=== PATIENT | female | born 1980 | race Caucasian/White ===

== ENCOUNTER → 2022-05-22 | Outpatient (REF) | payer SELFPAY ==
[2022-05-22 12:17] LABS: Estradiol 133.3 pg/mL
[2022-05-24 07:51] LABS: Progesterone Level < 0.21 ng/mL (See Comment)
== END ==
LOC: LABSPEC 11:54
PROVIDERS: PCP Internal Medicine; Visit Provider Nurse Practitioner Family
DX: R53.82 Chronic fatigue, unspecified (principal); N95.8 Other specified menopausal and perimenopausal disorders; F32.A Depression, unspecified
CPT/HCPCS: 82627; 82670; 84144; 84403; 82626

== ENCOUNTER 2024-08-06 01:04 | Emergency (ER) | payer SELFPAY ==
[2024-08-06 01:05] VITALS: BP 140/69; PULSE 76; RESP 16; TEMP 36.1; O2SAT 99; BMI 49.9
--- NOTE | 2024-08-06 01:33 | CT_ITS ---
PROCEDURE: ABDOMEN/PELVIS WITHOUT CONT 08/06/2024 REASON FOR EXAM: FLANK PAIN RIGHT TECHNIQUE: Abdomen and pelvis CT without intravenous contrast. Noncontrast technique limits evaluation of the abdominal and pelvic viscera. Coronal and Sagittal reconstruction series were provided. One or more dose reduction techniques were used (e.g., Automated exposure control, adjustment of the mA and/or kV according to patient size, use of iterative reconstruction technique). PATIENT PREPARATION: Per protocol ORAL CONTRAST TYPE: None. COMPARISON: None available FINDINGS: The lung bases are clear. Enlarged, fatty appearing liver. Single small low-density focus near the dome of the liver axial 30 may represent a hepatic cyst and is too small to further characterize. The gallbladder is not identified. The adrenal glands, kidneys, pancreas and spleen appear within limits on noncontrast imaging. No renal stones, hydronephrosis or perinephric stranding. No evidence of ureteral or bladder stone. Abdominal aorta appears within limits on noncontrast imaging without aneurysm. No adenopathy identified. No bowel dilation or free air. Normal caliber appendix without secondary signs. A few noninflamed colonic diverticula. The ovaries/adnexa, uterus and bladder appear within limits. No free fluid seen. Visualized osseous structures appear within limits. CT/Abdomen/Pelvis without Cont IMPRESSION: No evidence of acute intra-abdominal process on noncontrast imaging as above. Enlarged, fatty appearing liver. Reading Location: [id number]
[2024-08-06 01:39] LABS: Mucous, Urine 0 SEEN /hpf (<or=2+)
[2024-08-06 01:43] LABS: Absolute Lymphocyte Count 3.31 X10^3/uL (0.83-4.51); Absolute Neutrophil Count 3.1 X10^3/uL (2.0-7.7); Basophil# 0.05 X10^3/uL; Basophil% 0.7 % (0-1); Eosinophil# 0.26 X10^3/uL; Eosinophils% 3.6 % (0-5); Hematocrit 37.1 % (37-47); Hemoglobin 12.5 g/dL (12.0-15.0); Lymphocyte # 3.31 X10^3/ul (0.83-4.51); Mean Corp Hgb Conc 33.7 g/dL (32-36); Mean Corpuscular Hgb 30.3 pg (27.0-32.0); Mean Corpuscular Volume 89.8 fL (81-99); Mean Platelet Vol. 9.8 fl (6.2-12.0); Monocyte# 0.44 X10^3/uL; Monocyte% 6.1 % (0-10); NRBC Flagged by Analyzer 0 % (0-5); Neutrophil % 43.2 % (47-70); Platelet Count 311 K/mm3 (150-450); RBC Distribution Width CV 13.2 % (11.6-14.6); RBC Distribution Width SD 43.8 fl (35.1-43.9); Red Blood Count 4.13 M/mm3 (4.2-5.4); White Blood Count 7.2 K/mm3 (4.4-11.0)
--- NOTE | 2024-08-06 01:44 | EDS_ITS ---
HPI History of Present Illness Chief Complaint: Abd Pain Informant: patient Narrative Narrative: Sudden pain in right lower abdomen radiates to her back around midnight. Last 2 days no some discomfort in her lower back. Pain causing nausea. Has been no vomiting. 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 No pain in the legs. No fever chills or sweats. No vomiting. 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 Denies urinary symptoms. Currently on her menstrual period. No history of kidney stones. Denies history of gastric ulcers or kidney injury. Cholecystectomy 5 to 6 years ago. Prior similar symptoms: No PFSH PFSH Medical History ADHD IBS (irritable bowel syndrome) Home Medications ?Medication ?Instructions ?Recorded ?Last Taken ?Type cefdinir 300 mg capsule 300 mg PO Q12H #14 caps 07/24 08/17 Unknown Rx ibuprofen 600 mg tablet 600 mg PO Q6H PRN PRN pain # 20 08/06/24 Unknown Rx TABLETS ondansetron 4 mg disintegrating 4 mg PO Q8H PRN PRN Na usea #10 tabs 08/06/24 Unknown Rx tablet Allergy/AdvReac Type Severity Reaction Status Date / Time sulfamethoxazole (From Allergy Hives Verified 08/06/24 01:05 Bactrim) trimethoprim (From Bactrim) Allergy Hives Verified 08/06/24 01:05 Surgical History History of cholecystectomy Social History Smoking Status: Never smoker ROS ROS ED Constitutional Constitutional ED: Denies chills, fever(s) or sweats ENT ENT ED: Denies sore throat Cardiovascular Cardiovascular: Denies chest pain, leg edema, palpitations or racing heartbeat Respiratory/Chest Respiratory/Chest: Denies cough, dyspnea or dyspnea on exertion Gastrointestinal Gastrointestinal: Reports abdominal pain and nausea; Denies diarrhea or vomiting Genitourinary Genitourinary ED: Denies dysuria, hematuria or urinary frequency Musculoskeletal Musculoskeletal: Reports back pain; Denies extremity pain or neck pain Integumentary Denies rash or wounds Neurologic Neurologic: Denies headache(s), paresthesias or weakness EXAM Physical Exam Const Vital Signs: 08/06/24 01:05 08/06/24 03:14 Temperature 97 F L 97.9 F Temperature Source Temporal Pulse Rate 76 87 Respiratory Rate 16 18 Blood Pressure 140/69 H 139/89 H Blood Pressure Mean 92 105 Pulse Ox 99 99 Positive well nourished and well developed General Appearance ED: well developed and NAD HEENT Reports moist mucous membranes normocephalic and atraumatic Eyes General Eye ED: Yes normal appearance of both eyes Neck full ROM Chest Wall Chest: Negative for tenderness Resp normal respiratory effort and normal air movement Effort and Inspection: symmetric chest movement; Negative for respiratory distress Cardio regular rate, regular rhythm and no murmurs Peripheral Pulses: pulses 2+ throughout GI normal to inspection, nondistended, normoactive bowel sounds and non-tender GI Narrative: Negative Dia's or McBurney's tenderness. Palpation: Negative for guarding or rebound tenderness present Extremity normal to inspection General Extremety ED: Negative for edema or tenderness General Extremity: Negative for edema Neuro oriented x3 and no sensory deficits noted Sensorium / Orientation: awake and alert Skin no rashes or lesions noted and no wounds MDM MDM MDM Narrative Medical decision making narrative: Interventions / MDM: Differential diagnosis: UTI, abdominal pain, back pain Diagnosis considered but do not suspect: Appendicitis, kidney stone however CT negative. My EKG interpretation: N/A Imaging independently reviewed and interpreted by myself: CT abdomen pelvis: No acute process. External documents reviewed: N/A Test considered but not ordered:N/A ED course: Nontoxic vital stable. Sudden pain lower abdomen radiates to her back. Some vague back pain 2 days ago. Renal stone protocol admission. Labs urine hCG CT scan. IV established for fluids Zofran and Toradol ordered for symptom control. Workup urine nitrites leukocytes mild white cells there was blood however she is on her menstrual period. Urine culture sent. Labs white count 7.[address] scan negative for any acute process. With nitrite leukocytes discussed treatment. She started on cefdinir twice a day for the next 7 days. Outpatient follow-up with her doctor. All questions were answered. Re-evaluation: stable Disposition discussed with patient/family/significant other: Patient Case discussed with consulting clinician: N/A This note was generated with [employer] dictation software. It may contain incorrect words, spelling, and punctuation that were not noted in checking the note before signing. Lab Data Attestation: I reviewed the patient's lab results. Labs: Laboratory Results - last 24 hr 08/06/24 08/06/24 01:15 01:26 WBC 7.2 RBC 4.13 L Hgb 12.5 Hct 37.1 MCV 89.8 MCH 30.3 MCHC 33.7 RDW Std Deviation 43.8 RDW Coeff of [place] 13.2 Plt Count 311 MPV 9.8 Immature Gran % (Auto) 0.400 Neut % (Auto) 43.2 L Lymph % (Auto) 46.[address] % (Auto) 6.1 Eos % (Auto) 3.6 Baso % (Auto) 0.7 Absolute Neuts (auto) 3.1 Absolute Lymphs (auto) 3.31 Nucleated RBC % 0 Sodium 136 Potassium 4.0 Chloride 107 Carbon Dioxide 19.0 L Anion Gap 10 BUN 9 Creatinine 0.81 Estim Creat Clear Calc 126.59 Est GFR (MDRD) Non-Af 93 BUN/Creatinine Ratio 11.1 Glucose 107 H Calcium 8.3 Urine Color [place] Urine Clarity Cloudy Urine pH 5.0 Ur Specific [place] 1.025 Urine Protein 100 H Urine Glucose (UA) Normal Urine Ketones 5 H Urine Occult Blood 250 H Urine Nitrite Positive H Urine Bilirubin 1 H Urine Urobilinogen 1 H Ur Leukocyte Esterase 100 H Urine RBC > 100 SEEN Urine WBC 0-5 SEEN Ur Squamous Epith Cells 5-10 SEEN Urine Bacteria 1+ Urine Mucus 0 SEEN Urine Test Negative Radiography Diagnostic Testing: Clinical Impression(s) from Imaging Studies Abdomen/Pelvis CT 08/06/24 01:33 IMPRESSION: No evidence of acute intra-abdominal process on noncontrast imaging as above. Enlarged, fatty appearing liver. Reading Location: [facility] Discharge Plan Triage Chief Complaint: Abd Pain Other Complaint: Back ED Provider: Hussein Singh Dx/Rx/DC Orders Clinical Impression: UTI (urinary tract infection), Back pain Instructions: UTIs Prescriptions: New ibuprofen 600 mg tablet 600 mg PO Q6H PRN PRN (Reason: pain) Qty: 20 0RF ondansetron 4 mg tablet,disintegrating 4 mg PO Q8H PRN PRN (Reason: Nausea) Qty: 10 0RF cefdinir 300 mg capsule 300 mg PO Q12H Qty: 14 0RF Primary Care Provider: Roxann Ambrosio NP Referrals: Rosa Romero MD [Med Staff - [employer]] - 1 Week if not improving Activity Restrictions/Additional Instructions: CT normal appendix no kidney stones. Urine with concerning infection. Culture sent and pending. White count normal, kidney function normal. Taking finish antibiotic prescribed. Follow-up with your doctor. Print Language: Danish Disposition Disposition: Home, Self Care Discharge Date/Time: 08/06/24 03:15
[2024-08-06 01:45] LABS: Color, Urine Amber (Yellow); Glucose, Dipstick Normal (Normal); Ketone-Dipstick 5 mg/dl (Negative); Leukocyte Esterase-Dipstick 100 /ul (Negative); Nitrite-Dipstick Positive (Negative); Occult Blood-Urine 250 /ul (Negative); Protein-Dipstick 100 mg/dl (Negative); Specific Gravity, Urine 1.025 (1.002-1.030); Urine Clarity Cloudy (Clear); Urine Urobilinogen 1 mg/dl (Normal)
[2024-08-06] MEDS: 0.9% Normal Saline (1000mL) 1,000 ML 999 ML IV (01:45)
[2024-08-06] MEDS: Ketorolac 15 MG/ML Vial IV (01:46)
[2024-08-06] MEDS: Ondansetron 4 MG/2 ML Vial IV (01:46)
[2024-08-06 01:53] LABS: Urine Bilirubin Dipstick 1 mg/dL (Negative)
[2024-08-06 02:22] LABS: Internal QC Validated? YES +Cl - CLEAR BKGD; Pregnancy, Urine Negative Negative
[2024-08-06 02:23] LABS: Red Blood Cells-Urine > 100 SEEN /hpf (0-5); Squamous Epithelial Cells - UA 5-10 SEEN /hpf (5-10); White Blood Cells 0-5 SEEN /hpf (0-5)
[2024-08-06 02:24] LABS: Anion Gap 10 (5-15); BUN 9 mg/dL (4-19); BUN/Creat Ratio 11.1 RATIO (10-20); Calcium,Total 8.3 mg/dL (7.6-11.0); Chloride 107 mmol/L (98-108); Creatinine, Serum 0.81 mg/dL (0.70-1.20); EST Glomerular Filtration Rate 93 (>60); Estimated Creatinine Clearance 126.59 ml/min (50-250); Glucose 107 mg/dL (70-99); Sodium Level 136 mmol/L (133-145)
[2024-08-06 02:24] LABS: Bacteria 1+ /hpf (None Seen)
[2024-08-06] MEDS: Cefdinir 300 MG Capsule PO (03:12)
[2024-08-06 03:14] VITALS: BP 139/89; PULSE 87; RESP 18; TEMP 36.6; O2SAT 99
== END 2024-08-06 03:15 | disposition home or self-care (01) ==
PROVIDERS: Emergency Provider Emergency Medicine; PCP Nurse Practitioner Family; Visit Provider Emergency Medicine
DX: N39.0 Urinary tract infection, site not specified (principal); R11.0 Nausea; M54.9 Dorsalgia, unspecified
CPT/HCPCS: 74176; 80048; 81001; 81025; 85025; 87086; 87088; 96361; 96374; 96375; 99284; A4216; J2405